=== PATIENT | female | born 1965 | race Caucasian/White ===

== ENCOUNTER 2016-11-30 15:46 | Emergency (ER) | payer OTHER ==
[~2016-11-30] VITALS: Ht 162.6 cm; Wt 77.6 kg
[2016-11-30 18:05] VITALS: BP 125/72
== END 2016-11-30 18:05 | disposition home or self-care (01) ==
LOC: ED 15:46
DX: H66.91 Otitis media, unspecified, right ear (principal)
CPT/HCPCS: J1885